=== PATIENT | female | born 1975 | race Caucasian/White ===

== ENCOUNTER 2022-08-28 12:42 | Outpatient (CLI) | payer OTHER | END 2022-08-28 12:51 | disposition home or self-care (01) | LOC: SONOGRAMA 12:42 | PROVIDERS: ATTEND Obstetrics & Gynecology | DX: E04.2 Nontoxic multinodular goiter (principal); R10.2 Pelvic and perineal pain ==

== ENCOUNTER 2022-11-19 10:50 | Outpatient (CLI) | payer OTHER | END 2022-11-19 10:54 | disposition home or self-care (01) | LOC: RAD 10:50 | PROVIDERS: ATTEND Pediatrics | DX: J35.3 Hypertrophy of tonsils with hypertrophy of adenoids (principal) ==

== ENCOUNTER 2023-01-07 08:23 | Outpatient (CLI) | payer OTHER | END 2023-01-07 08:26 | disposition home or self-care (01) | LOC: RX STUDY 08:23 | PROVIDERS: ATTEND Pediatrics | DX: R13.10 Dysphagia, unspecified (principal) ==

== ENCOUNTER 2023-01-20 08:34 | Outpatient (CLI) | payer OTHER | END 2023-01-20 13:03 | disposition home or self-care (01) | LOC: LAB 08:34 | PROVIDERS: ATTEND Pediatrics | DX: J31.0 Chronic rhinitis (principal) ==

== ENCOUNTER 2023-03-09 08:44 | Outpatient (CLI) | payer OTHER ==
[2023-03-09 10:02] LABS: HEMATOCRIT 39.6 % (36.0-45.00); HEMOGLOBIN 13.2 g/dL (12.0-15.00); MEAN CELL VOLUME 91.6 fL (80.00-100.00); MEAN CORPUSCULAR HEMOGLOBIN 30.6 pg (27.00-32.0); MEAN CORPUSCULAR HGB CONC 33.4 g/dl (32.0-36.0); PLATELET COUNT 253 K/uL (150-450); RED BLOOD COUNT 4.32 M/uL (4.00-6.00); RED CELL DISTRIBUTION WIDTH 13.7 % (11.5-14.5)
[2023-03-09 10:40] LABS: ALBUMIN 3.8 gm/dL (3.4-5.0); BILIRUBIN TOTAL 0.65 mg/dL (0.3-1.2); CALCIUM 9.1 mg/dL (8.5-10.1); CHOL HDL RATIO 3.4 (0-5.0); CREATININE SERUM 0.8 mg/dL (0.55-1.02); GFR 76.56; GLOBULINA 3.5 G/DL (2.4-3.5); POTASSIUM 4.11 mEq/L (3.5-5.1); T4 FREE 1.03 NG/ML (0.76-1.46); TOTAL PROTEIN 7.3 gm/dL (6.4-8.2); TSH 0.793 uIU/mL (0.358-3.74)
[2023-03-10 08:10] LABS: FOLLICLE STIMULATING HORMONE 52.9 mIU/mL (.); LEUTEINIZING HORMONE 46.8 mIU/mL (.); PROLACTIN 6.1 ng/mL (4.8-23.3)
== END 2023-03-09 08:45 | disposition home or self-care (01) ==
LOC: LAB 08:44
PROVIDERS: ATTEND General Practice
DX: E06.3 Autoimmune thyroiditis (principal); E03.8 Other specified hypothyroidism; E55.9 Vitamin D deficiency, unspecified; E56.8 Deficiency of other vitamins; E28.310 Symptomatic premature menopause

== ENCOUNTER 2023-05-19 08:44 | Outpatient (CLI) | payer OTHER | END 2023-05-19 08:45 | disposition home or self-care (01) | LOC: LAB 08:44 | DX: J45.909 Unspecified asthma, uncomplicated (principal); J44.9 Chronic obstructive pulmonary disease, unspecified; T78.40XA Allergy, unspecified, initial encounter ==

== ENCOUNTER → 2023-05-19 | Outpatient (CLI) | payer OTHER | END | disposition home or self-care (01) | LOC: RAD 09:12 | DX: J20.9 Acute bronchitis, unspecified (principal); R06.00 Dyspnea, unspecified; R94.2 Abnormal results of pulmonary function studies ==

== ENCOUNTER 2024-03-08 08:25 | Outpatient (CLI) | payer OTHER ==
[2024-03-08 09:14] LABS: HEMATOCRIT 37.7 % (36.0-45.00); HEMOGLOBIN 12.9 g/dL (12.0-15.00); MEAN CELL VOLUME 90.9 fL (80.00-100.00); MEAN CORPUSCULAR HGB CONC 34.1 g/dl (32.0-36.0); PLATELET COUNT 253 K/uL (150-450); RED BLOOD COUNT 4.15 M/uL (4.00-6.00); RED CELL DISTRIBUTION WIDTH 15.5 % (11.5-14.5)
[2024-03-08 09:29] LABS: URINE APPEARANCE Clear; URINE BILIRRUBIN Negative (NEGATIVE); URINE BLOOD Negative; URINE COLOR Yellow; URINE GLUCOSE Negative (NEGATIVE); URINE KETONE Negative (NEGATIVE); URINE LEUKOCYTE Negative; URINE NITRATE Negative; URINE PROTEIN Negative (NEGATIVE); URINE UROBILINOGEN 0.2 E.U./dl
[2024-03-08 09:37] LABS: URINE EPITHELIAL CELLS 2.1 uL (0.0-38.8); URINE RBC 6.2 uL (0.0-20.8)
[2024-03-08 09:59] LABS: URINE WBC 0.9 uL (0.0-23.2)
[2024-03-08 11:39] LABS: ALBUMIN 3.2 gm/dL (3.4-5.0); BILIRUBIN TOTAL 0.94 mg/dL (0.3-1.2); CALCIUM 8.9 mg/dL (8.5-10.1); CHOL HDL RATIO 2.9 (0-5.0); CREATININE SERUM 0.76 mg/dL (0.55-1.02); GFR 80.88; GLOBULINA 3.4 G/DL (2.4-3.5); POTASSIUM 4.04 mEq/L (3.5-5.1); T4 FREE 0.82 NG/ML (0.76-1.46); TOTAL PROTEIN 6.6 gm/dL (6.4-8.2)
[2024-03-08 11:47] LABS: TSH 5.48 uIU/mL (0.358-3.74)
== END 2024-03-08 08:29 | disposition home or self-care (01) ==
LOC: LAB 08:25
PROVIDERS: ATTEND General Practice
DX: E06.3 Autoimmune thyroiditis (principal); E03.8 Other specified hypothyroidism; E55.9 Vitamin D deficiency, unspecified; E56.8 Deficiency of other vitamins; E28.310 Symptomatic premature menopause

== ENCOUNTER 2024-05-29 10:20 | Outpatient (CLI) | payer OTHER | END 2024-05-29 10:22 | disposition home or self-care (01) | LOC: RAD 10:20 | PROVIDERS: ATTEND Physical Medicine & Rehabilitation Hospice and Palliative Medicine | DX: M54.2 Cervicalgia (principal) ==

== ENCOUNTER 2024-08-18 08:27 | Outpatient (CLI) | payer OTHER ==
[2024-08-18 09:03] LABS: BASO % 0.4 % (0.1-1.2); EOS # 0.14 (0.04-0.54); EOS % 2.8 % (0.7-7.0); HEMATOCRIT 40.4 % (34.1-44.9); HEMOGLOBIN 13.3 g/dL (11.2-15.7); LYMPH # 1.63 (1.18-3.74); LYMPH % 32.2 % (19.3-53.1); MEAN CORPUSCULAR HEMOGLOBIN 29.8 pg (25.6-32.2); MONO # 0.52 (0.24-0.82); MONO % 10.3 % (4.7-12.5); NEUT # 2.74 (1.56-6.13); NEUT % 54.1 % (34.0-71.1); PLATELET COUNT 285 K/uL (163-369); RED BLOOD COUNT 4.46 M/uL (3.93-5.22); RED CELL DISTRIBUTION WIDTH 13.7 % (11.6-14.4)
[2024-08-18 09:54] LABS: ALBUMIN 3.7 gm/dL (3.4-5.0); BILIRUBIN TOTAL 0.71 mg/dL (0.3-1.2); CALCIUM 8.9 mg/dL (8.5-10.1); CREATININE SERUM 0.74 mg/dL (0.55-1.02); GFR 83.41; GLOBULINA 3.5 G/DL (2.4-3.5); POTASSIUM 4.29 mEq/L (3.5-5.1); TOTAL PROTEIN 7.2 gm/dL (6.4-8.2); TSH 1.06 uIU/mL (0.358-3.74)
[2024-08-19 09:08] LABS: DHEA-SULFATE 61.2 ug/dL (41.2-243.7)
== END 2024-08-18 08:28 | disposition home or self-care (01) ==
LOC: LAB 08:27
DX: D48.5 Neoplasm of uncertain behavior of skin (principal); M32.10 Systemic lupus erythematosus, organ or system involvement unspecified

== ENCOUNTER 2024-10-17 09:41 | Outpatient (CLI) | payer OTHER | END 2024-10-17 09:44 | disposition home or self-care (01) | LOC: RAD 09:41 | PROVIDERS: ATTEND Specialist | DX: M19.90 Unspecified osteoarthritis, unspecified site (principal); M25.542 Pain in joints of left hand; M25.541 Pain in joints of right hand ==

== ENCOUNTER 2024-10-20 08:45 | Outpatient (CLI) | payer OTHER ==
[2024-10-20 09:26] LABS: URINE APPEARANCE Clear; URINE BILIRRUBIN Negative (NEGATIVE); URINE BLOOD Negative; URINE COLOR Yellow; URINE GLUCOSE Negative (NEGATIVE); URINE KETONE Negative (NEGATIVE); URINE LEUKOCYTE Negative; URINE NITRATE Negative; URINE PROTEIN Negative (NEGATIVE); URINE UROBILINOGEN 0.2 E.U./dl
[2024-10-20 09:27] LABS: URINE BACTERIA 227.8 uL (0.0-1933); URINE EPITHELIAL CELLS 1.9 uL (0.0-38.8); URINE RBC 7.1 uL (0.0-20.8)
[2024-10-20 09:31] LABS: URINE CAST 0.00 uL (0.0-1.40); URINE WBC 0.4 uL (0.0-23.2)
[2024-10-20 09:45] LABS: BASO % 0.3 % (0.1-1.2); EOS # 0.13 (0.04-0.54); EOS % 2.0 % (0.7-7.0); LYMPH # 1.59 (1.18-3.74); LYMPH % 25.0 % (19.3-53.1); MEAN PLATELET VOLUME 12.10 fl (9.4-12.4); MONO # 0.66 (0.24-0.82); MONO % 10.4 % (4.7-12.5); NEUT # 3.94 (1.56-6.13); NEUT % 62.0 % (34.0-71.1); RED CELL DISTRIBUTION WIDTH 13.5 % (11.6-14.4)
[2024-10-20 10:56] LABS: ALT/SGPT 24.0 U/L (12-78); AST/SGOT 16.0 U/L (15-37); BILIRUBIN TOTAL 0.35 mg/dL (0.3-1.2); BUN CREA RATIO 17.0 (7.0-25.0); CHOL HDL RATIO 3.3 (0-5.0); CREATININE SERUM 0.66 mg/dL (0.55-1.02); GFR 95.19; GLOBULINA 3.2 G/DL (2.4-3.5); GLUCOSE FASTING 83.0 mg/dL (65-100); HDL 59.0 mg/dl (40-60); LDL 115.0 mg/dl (0-130); OSMOLALITY SERUM 278.0 MOSM/KG (275-295); T4 FREE 0.79 NG/ML (0.76-1.46); TSH 1.74 uIU/mL (0.358-3.74); VLDL 20.0 (0-39)
== END 2024-10-20 08:55 | disposition home or self-care (01) ==
LOC: LAB 08:45
PROVIDERS: ATTEND Specialist
DX: E03.8 Other specified hypothyroidism (principal); E11.65 Type 2 diabetes mellitus with hyperglycemia; E55.9 Vitamin D deficiency, unspecified; E78.00 Pure hypercholesterolemia, unspecified; I11.9 Hypertensive heart disease without heart failure; M81.0 Age-related osteoporosis without current pathological fracture; Z12.11 Encounter for screening for malignant neoplasm of colon

== ENCOUNTER 2024-10-23 14:53 | Outpatient (CLI) | payer OTHER ==
[2024-10-23 15:40] LABS: ob NEGATIVE (NEGATIVE)
== END 2024-10-23 14:57 | disposition home or self-care (01) ==
LOC: LAB 14:53
PROVIDERS: ATTEND Specialist
DX: E03.8 Other specified hypothyroidism (principal); E11.65 Type 2 diabetes mellitus with hyperglycemia; E55.9 Vitamin D deficiency, unspecified; E78.00 Pure hypercholesterolemia, unspecified; I11.9 Hypertensive heart disease without heart failure; M81.0 Age-related osteoporosis without current pathological fracture; Z12.11 Encounter for screening for malignant neoplasm of colon

== ENCOUNTER → 2024-12-13 08:59 | Outpatient (CLI) | payer OTHER ==
[2024-12-13 10:00] LABS: BASO % 0.2 % (0.1-1.2); EOS # 0.14 (0.04-0.54); EOS % 2.5 % (0.7-7.0); LYMPH # 1.37 (1.18-3.74); LYMPH % 24.9 % (19.3-53.1); MEAN PLATELET VOLUME 12.40 fl (9.4-12.4); MONO # 0.61 (0.24-0.82); MONO % 11.1 % (4.7-12.5); NEUT # 3.35 (1.56-6.13); NEUT % 60.9 % (34.0-71.1); RED CELL DISTRIBUTION WIDTH 13.4 % (11.6-14.4)
[2024-12-13 10:07] LABS: URINE APPEARANCE Clear; URINE BILIRRUBIN Negative (NEGATIVE); URINE BLOOD Negative; URINE COLOR Yellow; URINE GLUCOSE Negative (NEGATIVE); URINE KETONE Negative (NEGATIVE); URINE LEUKOCYTE Negative; URINE NITRATE Negative; URINE PROTEIN Negative (NEGATIVE); URINE UROBILINOGEN 0.2 E.U./dl
[2024-12-13 10:12] LABS: URINE BACTERIA 702.9 uL (0.0-1933); URINE EPITHELIAL CELLS 6.7 uL (0.0-38.8); URINE WBC 6.7 uL (0.0-23.2)
[2024-12-13 10:19] LABS: URINE CAST 0.00 uL (0.0-1.40); URINE RBC 1.9 uL (0.0-20.8)
[2024-12-13 11:15] LABS: ALT/SGPT 28.0 U/L (12-78); AST/SGOT 18.0 U/L (15-37); BILIRUBIN TOTAL 0.65 mg/dL (0.3-1.2); BUN CREA RATIO 14.0 (7.0-25.0); CHOL HDL RATIO 3.9 (0-5.0); CREATININE SERUM 0.71 mg/dL (0.55-1.02); GFR 87.13; GLOBULINA 3.4 G/DL (2.4-3.5); GLUCOSE FASTING 86.0 mg/dL (65-100); HDL 54.0 mg/dl (40-60); LDL 132.0 mg/dl (0-130); OSMOLALITY SERUM 283.0 MOSM/KG (275-295); T4 FREE 0.94 NG/ML (0.76-1.46); TSH 0.484 uIU/mL (0.358-3.74); VLDL 25.0 (0-39)
== END | disposition home or self-care (01) ==
LOC: LAB 08:59
PROVIDERS: ATTEND General Practice
DX: E06.3 Autoimmune thyroiditis (principal); E03.8 Other specified hypothyroidism; E55.9 Vitamin D deficiency, unspecified; E56.8 Deficiency of other vitamins; E28.310 Symptomatic premature menopause; E04.1 Nontoxic single thyroid nodule

== ENCOUNTER 2024-12-13 09:26 | Outpatient (CLI) | payer OTHER | END 2024-12-13 09:32 | disposition home or self-care (01) | LOC: SONOGRAMA 09:26 | PROVIDERS: ATTEND General Practice | DX: E06.3 Autoimmune thyroiditis (principal); E03.8 Other specified hypothyroidism; E55.9 Vitamin D deficiency, unspecified; E56.8 Deficiency of other vitamins; E28.310 Symptomatic premature menopause; E04.1 Nontoxic single thyroid nodule ==

== ENCOUNTER 2025-01-19 09:01 | Outpatient (CLI) | payer OTHER ==
[2025-01-20 09:07] LABS: LEUTEINIZING HORMONE 60.6 mIU/mL (.); PROLACTIN 6.3 ng/mL (4.8-33.4)
== END 2025-01-19 09:05 | disposition home or self-care (01) ==
LOC: LAB 09:01
PROVIDERS: ATTEND General Practice
DX: E06.3 Autoimmune thyroiditis (principal); E03.8 Other specified hypothyroidism; E55.9 Vitamin D deficiency, unspecified; E28.310 Symptomatic premature menopause; E04.1 Nontoxic single thyroid nodule; R73.01 Impaired fasting glucose; Z13.1 Encounter for screening for diabetes mellitus